=== PATIENT | female | born 2000 | race African-American/Black ===

== ENCOUNTER 2020-06-30 19:37 | Emergency (ER) | payer SELFPAY ==
[2020-06-30 20:08] LABS: Band 1 % (5-11); Eosinophils 1 % (0-10); Hemoglobin 13.4 g/dL (12.0-16.0); Lymphocytes 40 % (28-48); MDiff Complete? YES; Mean Corpuscular Hemoglobin 27.9 pg (25.0-35.0); Mean Platelet Volume 7.1 fL (7.4-10.4); Monocytes 4 % (0-4); Neutrophil 53 % (31-61); Platelet Count 349 thou/uL (130-400); RBC Distribution Width 11.3 % (11.5-14.5); Red Blood Cell (RBC) Count 4.79 mill/uL (4.00-5.20); White Blood Cell (WBC) Count 7.6 thou/uL (4.8-10.8)
[2020-06-30 20:15] LABS: ALT (SGPT) 12 U/L (8-55); AST (SGOT) 12 U/L (5-30); Albumin 4.3 g/dL (3.5-5.0); Alkaline Phosphatase 120 U/L (40-100); Anion Gap 16 mmol/L (10-20); BUN (Urea Nitrogen) 6 mg/dL (8.4-21.0); Bilirubin, Total 0.4 mg/dL (0.2-1.2); Calc. Creatinine Clearance 0 mL/min (70-130); Calcium 9.4 mg/dL (7.8-10.44); Carbon Dioxide 24 mmol/L (22-29); Chloride 101 mmol/L (98-107); Estimated GFR-MDRD Greater than 90; Globulin 3.6 g/dL (2.4-3.5); Glucose 347 mg/dL (70-105); Potassium 3.9 mmol/L (3.5-5.1); Protein, Total 7.9 g/dL (6.0-8.3); Sodium 137 mmol/L (136-145)
--- NOTE | 2020-07-01 07:17 | RAD ---
PORTABLE CHEST: Date: 06/30/2020 An AP portable film at 1956 hours shows a normal sized heart and clear lungs. No infiltrate or effusi on seen. No vascular congestion or edema. IMPRESSION: No acute thoracic finding. POS: HOME
== END 2020-06-30 20:58 | disposition home or self-care (01) ==
LOC: BURERS 19:37
DX: R07.89 Other chest pain (principal); E10.9 Type 1 diabetes mellitus without complications
CPT/HCPCS: 36415; 36416; 71045; 80053; 84443; 84484; 85025; 93005